=== PATIENT | female | born 1960 | race Caucasian/White ===

== ENCOUNTER 2017-01-14 18:59 | Emergency (ER) | payer BC, MEDICAID ==
[~2017-01-14] VITALS: Ht 152.4 cm; Wt 55.3 kg
[2017-01-14 19:16] VITALS: BP 119/90
== END 2017-01-14 19:43 | disposition left against medical advice (07) ==
LOC: ED 18:59
DX: Z53.21 Procedure and treatment not carried out due to patient leaving prior to being seen by health care provider (principal)